=== PATIENT | female | born 1985 | race Caucasian/White ===

== ENCOUNTER 2017-08-13 13:39 | Emergency (ER) | payer SELFPAY ==
[2017-08-13 13:51] VITALS: BP 130/78
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
== END 2017-08-13 14:40 | disposition home or self-care (01) ==
LOC: UCEAST 13:39
DX: S30.814A Abrasion of vagina and vulva, initial encounter (principal); L08.9 Local infection of the skin and subcutaneous tissue, unspecified; X58.XXXA Exposure to other specified factors, initial encounter; Y93.9 Activity, unspecified; Y92.9 Unspecified place or not applicable
CPT/HCPCS: 99212; G0463

== ENCOUNTER 2019-04-14 07:23 | Emergency (ER) | payer OTHER ==
[2019-04-14] MEDS ORDERED: Amoxicillin/Clavulanate TAB* 875 MG PO ONE (07:58)
--- NOTE | 2019-04-14 08:12 | ED ---
Throat Pain/Nasal Congestion - HPI Summary HPI Summary: This patient is a 33-year-old female who is otherwise healthy presenting to the ED with a 2 day history of left-sided facial swelling. She denies any erythema or warmth to the area. She denies any fevers or pain. She states the area began to swell over the maxillary sinus spontaneously and is now having some mild swelling to the left cheek and jawline. Denies any dental pain. Denies any dysphagia or odynophagia. Continues to eat and drink okay. She states she has never had this before. Symptoms are not worse or better with over-the- counter medications, ibuprofen. - History of Current Complaint Chief Complaint: EDDentalPain Time Seen by Provider: 04/14/19 07:35 Hx Obtained From: Patient Onset/Duration: Sudden Onset Severity: Mild Associated Signs And Symptoms: Positive: Negative - Epiglottits Risk Factors Epiglottis Risk Factors: Negative - Allergies/Home Medications Allergies/Adverse Reactions: Allergies Allergy/AdvReac Type Severity Reaction Status Date / Time No Known Allergies Allergy Verified 04/14/19 07:28 Home Medications: Home Medications Levonorgestrel (Iud) [Mirena IUD] 20 mcg IU SEE INSTRUCTIONS 04/14/19 [History Confirmed 04/14/19] PMH/Surg Hx/FS Hx/Imm Hx Previously Healthy: Yes Cardiovascular History: Denies: Hx Hypertension Respiratory History: Denies: Hx Asthma, Hx Chronic Obstructive Pulmonary Disease (COPD) - Immunization History Hx Pertussis Vaccination: No Immunizations Up to Date: Yes Infectious Disease History: No Infectious Disease History: Denies: Hx Hepatitis, Hx Human Immunodeficiency Virus (HIV), Traveled Outside the [place] in Last 30 Days - Family History Known Family History: Positive: None - Social History Occupation: Employed Full-time Lives: With Family Alcohol Use: Rare Hx Substance Use: No Substance Use Type: Reports: None Hx Tobacco Use: No Smoking Status (MU): Never Smoked Tobacco Review of Systems Negative: Fever, Chills, Fatigue, Skin Diaphoresis ENT: Other - swelling to the L side of the face/jaw without erythema or involvment of the eye Negative: Chest Pain Negative: Shortness Of Breath, Cough Genitourinary: Negative Positive: no symptoms reported, see HPI Negative: Arthralgia, Myalgia Neurological: Negative All Other Systems Reviewed And Are Negative: Yes Physical Exam Triage Information Reviewed: Yes Vital Signs On Initial Exam: Initial Vitals Temp Pulse Resp BP Pulse Ox 97.0 F 86 16 144/83 98 04/14/19 07:25 04/14/19 07:25 04/14/19 07:25 04/14/19 07:25 04/14/19 07:25 Vital Signs Reviewed: Yes Appearance: Positive: Well-Appearing, Well-Nourished Skin: Positive: Warm, Skin Color Reflects Adequate Perfusion Head/Face: Positive: Normal Head/Face Inspection Eyes: Positive: EOMI, Conjunctiva Clear ENT: Positive: Pharynx normal, Other - swelling of the jaw/face. Negative: Dental tenderness, Sinus tenderness, Uvula midline Neck: Positive: Supple, No Lymphadenopathy Respiratory/Lung Sounds: Positive: Clear to Auscultation, Breath Sounds Present Cardiovascular: Positive: RRR, Pulses are Symmetrical in both Upper and Lower Extremities Musculoskeletal: Positive: Strength/ROM Intact Neurological: Positive: Speech Normal Psychiatric: Positive: Affect/Mood Appropriate Procedures - Sedation Patient Received Moderate/Deep Sedation with Procedure: No Diagnostics - Vital Signs Vital Signs Temp Pulse Resp BP Pulse Ox 04/14/19 07:25 97.0 F 86 16 144/83 98 - Laboratory Lab Statement: Any lab studies that have been ordered have been reviewed, and results considered in the medical decision making process. EENT Course/Dx - Course Course Of Treatment: During this course of treatment, the patient is evaluated for left sided jaw swelling without pain. Denies any dysphagia or odynophagia. On physical examination, there is a mild to moderate amount of swelling to the left cheek and left jaw line. No signs of erythema, warmth or signs of infection. She is given Augmentin for possible infection. Patient's vital signs are stable and she has no fever. She is encouraged to return if symptoms do not improve within the next 2 days. No evidence of a loculated mass or abscess. - Diagnoses Provider Diagnoses: Swelling of face Discharge ED - Sign-Out/Discharge Documenting (check all that apply): Patient Departure - Discharge Plan Condition: Stable Disposition: HOME Prescriptions: Amoxicillin/Clavulanate TAB* [Augmentin TAB 875*] 875 mg PO BID #14 tab Referrals: Dane Beckett MD [Primary Care Provider] - Additional Instructions: Ibuprofen 600mg three times daily for swelling Augmentin twice dailky x 7 days Please follow up with PCP Return to the ED immediately if you develop any worsening or changing symptoms, including fevers, worsening swelling or redness to the cheek or the jaw - Billing Disposition and Condition Condition: STABLE Disposition: Home
[2019-04-14 08:16] VITALS: BP 133/82
== END 2019-04-14 08:15 | disposition home or self-care (01) ==
LOC: ED 07:23
DX: R22.0 Localized swelling, mass and lump, head (principal)
CPT/HCPCS: 99282; A9270-GY

== ENCOUNTER 2019-07-30 12:08 | Emergency (ER) | payer OTHER ==
--- NOTE | 2019-07-30 12:47 | ED ---
Throat Pain/Nasal Congestion - HPI Summary HPI Summary: Patient is a 34-year-old female who presents emergency department for redness and itching to right eye 3 days. Patient states she had mild upper respiratory symptoms this week which are improving except redness to her right eye. She does not wear contact lenses. Patient states she's had similar symptoms in the past there resolved with antibiotic eyedrops. Patient denies fever, chills, productive cough. Denies visual changes. Symptoms are mild in severity. No current modifying factors. - History of Current Complaint Chief Complaint: EDEyeProblem Time Seen by Provider: 07/30/19 12:25 Hx Obtained From: Patient - Allergies/Home Medications Allergies/Adverse Reactions: Allergies Allergy/AdvReac Type Severity Reaction Status Date / Time No Known Allergies Allergy Verified 07/30/19 12:18 Home Medications: Home Medications Amoxicillin/Clavulanate TAB* [Augmentin TAB 875*] 875 mg PO BID #14 tab [Rx] Levonorgestrel (Iud) [Mirena IUD] 20 mcg IU SEE INSTRUCTIONS 04/14/19 [History Confirmed 04/14/19] Polymyx/Trimethoprim OPTH* [Polytrim OPHTH*] 1 drop RIGHT EYE Q3H 10 Days #1 btl 07/30/19 [Rx] PMH/Surg Hx/FS Hx/Imm Hx Previously Healthy: Yes Cardiovascular History: Denies: Hx Hypertension Respiratory History: Denies: Hx Asthma, Hx Chronic Obstructive Pulmonary Disease (COPD) Infectious Disease History: No Infectious Disease History: Denies: Hx Hepatitis, Hx Human Immunodeficiency Virus (HIV), Traveled Outside the [place] in Last 30 Days - Family History Known Family History: Positive: None, Non-Contributory - Social History Occupation: Employed Full-time Lives: With Family Alcohol Use: Occasionally Hx Substance Use: No Substance Use Type: Reports: None Hx Tobacco Use: No Smoking Status (MU): Never Smoked Tobacco Review of Systems Constitutional: Negative Negative: Fever, Chills Positive: Drainage, Erythema Positive: Nasal Discharge Respiratory: Negative Musculoskeletal: Negative Skin: Negative Neurological/Mental Status: Negative All Other Systems Reviewed And Are Negative: Yes Physical Exam Triage Information Reviewed: Yes Vital Signs On Initial Exam: Initial Vitals Temp Pulse Resp BP Pulse Ox 97.6 F 84 15 155/78 97 07/30/19 12:16 07/30/19 12:16 07/30/19 12:16 07/30/19 12:16 07/30/19 12:16 Vital Signs Reviewed: Yes Appearance: Positive: Well-Appearing - Pt. sitting up in bed in NAD Skin: Positive: Warm, Dry Head/Face: Positive: Normal Head/Face Inspection Eyes: Positive: Normal, EOMI, AYLIN, Other: - Right eye with marked injection to conjunctiva. No drainage. Extraocular muscles intact without pain. No periorbital erythema or edema. Left eye unremarkable. ENT: Positive: Pharynx normal, TMs normal Neck: Positive: Supple Respiratory/Lung Sounds: Positive: Clear to Auscultation, Breath Sounds Present Cardiovascular: Positive: Normal, RRR Neurological: Positive: Normal, CN Intact II-III Psychiatric: Positive: Affect/Mood Appropriate Procedures - Sedation Patient Received Moderate/Deep Sedation with Procedure: No Diagnostics - Vital Signs Vital Signs Temp Pulse Resp BP Pulse Ox 07/30/19 12:33 87 96 07/30/19 12:31 92 133/90 96 07/30/19 12:16 97.6 F 84 15 155/78 97 - Laboratory Lab Statement: Any lab studies that have been ordered have been reviewed, and results considered in the medical decision making process. EENT Course/Dx - Course Course Of Treatment: Patient for conjunctivitis, will tx with Polytrim eyedrops. Advised close follow-up with PCP for recheck in 2-3 days. Return to the ER for increased redness, pain, fever, surrounding erythema or edema or if concerned. Patient understands and agrees with plan. - Differential Diagnoses Differential Diagnoses: Conjunctivitis, Influenza, URI/Bronchitis - Diagnoses Provider Diagnoses: Conjunctivitis, URI (upper respiratory infection) Discharge ED - Sign-Out/Discharge Documenting (check all that apply): Patient Departure - Discharge Plan Condition: Good Disposition: HOME Prescriptions: Polymyx/Trimethoprim OPTH* [Polytrim OPHTH*] 1 drop RIGHT EYE Q3H 10 Days #1 btl Patient Education Materials: Conjunctivitis (ED) Referrals: Dane Beckett MD [Primary Care Provider] - Additional Instructions: Follow up with PCP in 2-3 days for recheck Eye drops as directed Apply warm compresses Avoid rubbing/touching eye Return to ER for increased pain/pain with moving eye, fever, surrounding swelling or redness, fever, or if concerned - Billing Disposition and Condition Condition: GOOD Disposition: Home
[2019-07-30 12:54] VITALS: BP 133/107
== END 2019-07-30 12:53 | disposition home or self-care (01) ==
LOC: ED 12:08
DX: H10.9 Unspecified conjunctivitis (principal); J06.9 Acute upper respiratory infection, unspecified; Z97.5 Presence of (intrauterine) contraceptive device
CPT/HCPCS: 99282